=== PATIENT | male | born 1965 | race African-American/Black ===

== ENCOUNTER → 2019-03-03 | Outpatient (CLI) | payer OTHER ==
[2015-06-10 08:22] VITALS: BP 120/80
[~2019-03-03] MED LIST: ALLO300T PO; ALPR0.5T6 PO; AMLO5TAB10 PO; BUPR150T11 PO; CELE200C PO; CETI10TA22 PO; CHOL10002 PO; COLE1TAB2 PO; CRESTOR10 MG PO; HYDR-2765 PO; IBUP-1060 PO; MESA10003 RC; MESA800T2 PO; OXYC5TAB4 PO; WARF-78 PO
--- NOTE | 2019-03-03 13:22 | KCIC ---
EXAM: Cervical spine, 3 views. HISTORY: Pain. COMPARISON: None. FINDINGS: 3 views of the cervical spine are obtained. There is straightening of cervical lordosis. There is no significant listhesis. There is chronic mild decreased vertebral body height at C6, and to a lesser extent, C5. There is degenerative endplate remodeling with anterior osteophytosis primarily at C5-C6. IMPRESSION: 1. Degenerative change primarily at C5-C6. 2. No acute osseous finding. Electronically signed by: Faviola Rizo MD (03/03/2019 1:18 PM) [facility]
== END | disposition home or self-care (01) ==
LOC: KCIC 08:31
PROVIDERS: ATTEND Physician Assistant Surgical
DX: M47.812 Spondylosis without myelopathy or radiculopathy, cervical region (principal)
CPT/HCPCS: 72040